=== PATIENT | female | born 1945 | race Caucasian/White ===

== ENCOUNTER 2017-01-27 15:24 | Outpatient (CLI) | payer MEDICARE | END 2017-01-27 15:25 | disposition home or self-care (01) | LOC: HPCALD 15:24 | PROVIDERS: ATTEND Family Medicine | DX: M25.50 Pain in unspecified joint (principal) | CPT/HCPCS: 36415; 82550 ==

== ENCOUNTER 2017-03-24 09:20 | Outpatient (CLI) | payer MEDICARE ==
[2017-03-24 09:44] LABS: #Eosinphils 0.2 thou/uL (0.0-0.7); #Lymphocytes 1.3 thou/uL (1.20-3.40); #Monocytes 0.3 thou/uL (0.11-0.59); #Neutrophils 3.2 thou/uL (1.40-6.50); %Basophils 0.7 % (0.0-1.0); %Eosinophils 3.4 % (0.0-10.0); %Lymphocytes 25.8 % (21.0-51.0); %Monocytes 6.3 % (0.0-10.0); %Neutrophils 63.8 % (42.0-75.0); Hemoglobin 13.9 g/dL (12.0-16.0); Mean Corpuscular Hemoglobin 31.7 pg (27.0-31.0); Mean Corpuscular Volume 90.7 fl (81.0-99.0); Mean Platelet Volume 6.3 fL (7.4-10.4); Platelet Count 212 thou/uL (130-400); RBC Distribution Width 13.4 % (11.5-14.5); Red Blood Cell (RBC) Count 4.38 mill/uL (4.20-5.40); White Blood Cell (WBC) Count 4.9 thou/uL (4.8-10.8)
[2017-03-24 10:07] LABS: ALT (SGPT) 14 U/L (0-55); AST (SGOT) 27 U/L (5-34); Albumin 4.2 g/dL (3.4-4.8); Alkaline Phosphatase 67 U/L (40-150); Anion Gap 13 mmol/L (10-20); BUN (Urea Nitrogen) 13 mg/dL (9.8-20.1); Bilirubin, Total 0.7 mg/dL (0.2-1.2); Calc. Creatinine Clearance 0 mL/min (70-130); Calcium 8.8 mg/dL (7.8-10.44); Carbon Dioxide 22 mmol/L (23-31); Cardiac Risk 3.9 (Less than 4.5); Chloride 110 mmol/L (98-107); Cholesterol 181 mg/dL (< 200 Desired); Estimated GFR-MDRD 70; Globulin 2.7 g/dL (2.4-3.5); Glucose 94 mg/dL (80-115); HDL Cholesterol 46 mg/dL (>60 Neg Risk); LDL Cholesterol, Calculated 116 mg/dL; Potassium 4.1 mmol/L (3.5-5.1); Protein, Total 6.9 g/dL (5.8-8.1); Sodium 141 mmol/L (136-145); Triglycerides 94 mg/dL (Less than 150)
== END 2017-03-24 09:21 | disposition home or self-care (01) ==
LOC: HPCALD 09:20
PROVIDERS: ATTEND Family Medicine
DX: E78.2 Mixed hyperlipidemia (principal)
CPT/HCPCS: 36415; 80053; 80061; 85025

== ENCOUNTER 2017-05-05 10:51 | Outpatient (CLI) | payer MEDICARE ==
--- NOTE | 2017-05-06 08:07 | RAD ---
LUMBAR SPINE THREE VIEWS: Date: 05-05-17 FINDINGS: No acute fracture was seen. There is mild retrolisthesis of L2 on L3. Significant facet arthritis is suggested at L5-S1. This area would be much better visualized using cross sectional imaging such as MRI. While the disc spaces are generally normal in height, there may be some slight narrowing at L5 -S1 and L2-3. Faint vacuum phenomenon are seen at T11-12 and T12-L1. On the lateral view only one sees a rounded 1 cm calcification near the diaphragm. This is probably in the left upper quadrant. It could be something like a splenic artery aneurysm, but the findings a re simply not definite to be sure. My suspicion that the finding is significant is very low. Finally , the SI joints were symmetrical. IMPRESSION: 1. Mild degenerative changes but the facet joints at L5-S1 are particularly suspect. 2. Minor disc degeneration in the lower thoracic region. COMMENT: Given the presence of sciatica and the findings seen so far, an MRI would be quite useful i n this patient. POS: HOME
== END 2017-05-05 10:52 | disposition home or self-care (01) ==
LOC: BURRAD 10:51
PROVIDERS: ATTEND Family Medicine
DX: M54.42 Lumbago with sciatica, left side (principal); M47.817 Spondylosis without myelopathy or radiculopathy, lumbosacral region; M51.34 Other intervertebral disc degeneration, thoracic region
CPT/HCPCS: 72100

== ENCOUNTER 2018-05-20 08:19 | Outpatient (CLI) | payer MEDICARE ==
--- NOTE | 2018-05-20 19:45 | ULT ---
ABDOMINAL ULTRASOUND 05/20/18 Ultrasonography of the abdomen was performed for evaluation of the liver and spleen. The liver is normal in size, measuring 14 cm in oblique sagittal dimension. Its echotexture was geneva l. No dilated ducts or hepatic masses were seen. The spleen is normal in size, measuring 8.5 x 4.1 cm . Internally, it appeared normal. The gallbladder is seen somewhat poorly and it did have some sludge in it. No stones were detected. T he common bile duct was 6 mm in caliber which is borderline in size. There were no intrahepatic dilat ed ducts to suggest concern. The right kidney was 11.3 cm long. The lower pole was seen poorly due to bowel gas, but overall, it w as unremarkable in appearance. The left kidney appears normal and is 10.4 cm long. The aorta was normal in caliber. The IVC was unremarkable. The pancreas was largely obscured by gas, but the visible areas appeared normal. IMPRESSION: 1. Hepatic and splenic sizes and appearances are within normal limits. 2. Minimal amount of sludge in the gallbladder. POS: HOME
== END 2018-05-20 08:20 | disposition home or self-care (01) ==
LOC: BURULT 08:19
PROVIDERS: ATTEND Internal Medicine Medical Oncology
DX: R16.1 Splenomegaly, not elsewhere classified (principal); D72.818 Other decreased white blood cell count; K82.8 Other specified diseases of gallbladder
CPT/HCPCS: 76700

== ENCOUNTER 2021-06-14 10:37 | Outpatient (CLI) | payer MEDICARE | END 2021-06-14 10:38 | disposition home or self-care (01) | LOC: BURRAD 10:37 | PROVIDERS: ATTEND Nurse Practitioner Family | DX: M25.572 Pain in left ankle and joints of left foot (principal); M25.551 Pain in right hip; M20.12 Hallux valgus (acquired), left foot; M77.32 Calcaneal spur, left foot | CPT/HCPCS: 72170 ==

== ENCOUNTER 2022-02-04 11:59 | Outpatient (CLI) | payer MEDICARE | END 2022-02-04 12:00 | disposition home or self-care (01) | LOC: BURRAD 11:59 | PROVIDERS: ATTEND Nurse Practitioner Family | DX: M79.671 Pain in right foot (principal); M19.071 Primary osteoarthritis, right ankle and foot ==